=== PATIENT | female | born 1935 | race Caucasian/White ===

== ENCOUNTER → 2017-10-01 | Day surgery (SDC) | payer OTHER ==
[~2017-10-01] MED LIST: CEFAZOLIN 1 GM/50 ML (PMX) 50 ML IVPB; EPHEDrine SULFATE 50 MG/5 ML SYG; HEPARIN 1000 UNITS/ML 10 ML INJ; LIDOCAINE 1% (MDV) 20 ML INJ; hydrALAzine 20 MG INJ; hydrALAzine 20 MG INJ IV
== END | disposition home or self-care (01) ==
LOC: ZBAR 12:39 → SDS 12:39
DX: I12.0 Hypertensive chronic kidney disease with stage 5 chronic kidney disease or end stage renal disease (principal); N18.6 End stage renal disease
CPT/HCPCS: 36558; 76942

== ENCOUNTER 2017-10-26 15:18 | Inpatient (IN) | payer MEDICARE, BC, OTHER ==
[2017-10-26 16:32] LABS: ADD MAN DIFF? NO
[2017-10-26] MEDS: ACETAMINOPHEN 650 MG SUPP PR (16:35)
[2017-10-26] MEDS: SODIUM CHLORIDE 0.9% 1L BAG IV* (16:35)
[2017-10-26] MEDS: CEFEPIME 2GM/50 ML (PMX) 50 ML IVPB (16:35)
[2017-10-26 16:36] LABS: BASOPHIL # 0.1 10^3/ul (0.0-0.1); BASOPHILS % 0.3 % (0.0-2.0); EOSINOPHILS # 0.3 10^3/ul (0.0-0.5); EOSINOPHILS % 1.9 % (0.0-7.0); HEMATOCRIT 32.1 % (37.0-47.0); HEMOGLOBIN 10.1 g/dl (12.0-16.0); LYMPHOCYTES # 4.1 10^3/ul (0.8-2.9); LYMPHOCYTES % 25.4 % (15.0-51.0); MEAN CORPUSCULAR HEMOGLOBIN 30.8 pg (29.0-33.0); MEAN CORPUSCULAR HGB CONC 31.5 g/dl (32.0-37.0); MEAN CORPUSCULAR VOLUME 97.9 fl (82.0-101.0); MEAN PLATELET VOLUME 9.7 fl (7.4-10.4); MONOCYTE # 1.1 10^3/ul (0.3-0.9); MONOCYTES % 6.5 % (0.0-11.0); NEUTROPHIL # 10.1 10^3/ul (1.6-7.5); NEUTROPHILS % 62.6 % (39.0-77.0); NUCLEATED RED BLOOD CELLS% 0.2 /100WBC (0.0-0.0); PLATELET COUNT 323 10^3/UL (140-415); RED BLOOD COUNT 3.28 10^6/ul (4.20-5.40); RED CELL DISTRIBUTION WIDTH 17.6 % (11.5-14.5)
[2017-10-26 16:36] LABS: WHITE BLOOD COUNT 16.1 10^3/ul (4.8-10.8)
[2017-10-26 16:40] LABS: INR 0.99; PROTIME 13.2 Sec (11.9-14.9)
[2017-10-26 16:41] LABS: PARTIAL THROMBOPLASTIN TIME 30.1 Sec (25.0-35.0)
[2017-10-26 16:50] LABS: LACTIC ACID 1.7 mmol/L (0.5-2.0)
[2017-10-26 16:53] LABS: ALANINE AMINOTRANSFERASE 33 IU/L (13-69); ALBUMIN 3.7 g/dl (3.3-4.9); ALBUMIN/GLOBULIN RATIO 0.86; ALKALINE PHOSPHATASE 233 IU/L (42-121); ANION GAP 20 (8-16); ASPARTATE AMINO TRANSFERASE 51 IU/L (15-46); BLOOD UREA NITROGEN 112 mg/dl (7-20); CALCIUM 10.2 mg/dl (8.4-10.2); CARBON DIOXIDE 26 mmol/L (21-31); CHLORIDE 89 mmol/L (97-110); CREATININE 5.23 mg/dl (0.44-1.00); GLUCOSE 128 mg/dl (70-220); POTASSIUM 3.9 mmol/L (3.5-5.1); SODIUM 131 mmol/L (135-144)
[2017-10-26 17:03] LABS: TROPONIN-I 0.057 ng/ml (0.00-0.12)
[2017-10-26 17:33] LABS: ADD UMIC YES; UR ASCORBIC ACID NEGATIVE (NEGATIVE); UR BACTERIA MANY /HPF (NONE SEEN); UR BILIRUBIN (Dip) NEGATIVE (NEGATIVE); UR BLOOD (Dip) 2+ mg/dL (NEGATIVE); UR CLARITY TURBID (CLEAR); UR COLOR YELLOW (YELLOW); UR GLUCOSE (Dip) NEGATIVE (NEGATIVE); UR KETONES (Dip) NEGATIVE (NEGATIVE); UR LEUKOCYTE ESTERASE (Dip) 3+ Leu/ul (NEGATIVE); UR NITRITE (Dip) NEGATIVE (NEGATIVE); UR RBC 25 /HPF (0-5); UR SPECIFIC GRAVITY (Dip) 1.013 (1.003-1.030); UR TOTAL PROTEIN (Dip) 2+ mg/dl (NEGATIVE); UR UROBILINOGEN (Dip) NEGATIVE (NEGATIVE); UR WBC > 182 /HPF (0-5)
[2017-10-26] MEDS: VANCOMYCIN 1 GM (PMX) 250 ML IVPB (19:10)
[2017-10-26] MEDS ORDERED: ONDANSETRON 4 MG INJ IV (19:30)
[2017-10-26] MEDS ORDERED: ACETAMINOPHEN 325 MG TAB PO (19:30)
[2017-10-26 19:57] LABS: LACTIC ACID 0.9 mmol/L (0.5-2.0)
[2017-10-27 06:22] LABS: AADO2 Arterial 107.9 mmHg (7.0-24.0); Allen Test ACCEPTAB; Arterial Base Excess -4.1 mmol/L (-3.0-3); Arterial Blood Gas Oxygen Sat 95.3 mmHG (95.0-100.0); Arterial COHb 0 % (0.0-3.0); Arterial Fraction of Oxyhgb 94.9 % (93.0-99.0); Arterial HCO3 22.4 mmol/L (22.0-26.0); Arterial MetHb 0.4 % (0.0-1.5); Arterial Total Hemglobin 10.6 g/dl (12.0-18.0); Arterial pCO2 47.5 mmhg (35-45); MODE VENT - AC; Site Left Radial
[2017-10-27] MEDS ORDERED: HARD FAT/PHENYLEPHRINE SUPP PR (08:00)
[2017-10-27] MEDS ORDERED: ONDANSETRON 4 MG TAB GTB (08:00)
[2017-10-27] MEDS ORDERED: morphine LIQ (10 MG/5 ML) CUP GTB (08:00)
[2017-10-27] MEDS ORDERED: HYDROCODONE/APAP (5/325) TAB GTB (08:00)
[2017-10-27] MEDS ORDERED: VANCOMYCIN IV PER PHARMACY XX (08:00)
[2017-10-27 08:14] LABS: ADD MAN DIFF? NO
[2017-10-27 08:24] LABS: BASOPHILS % 0.2 % (0.0-2.0); EOSINOPHILS # 0.2 10^3/ul (0.0-0.5); EOSINOPHILS % 1.4 % (0.0-7.0); HEMATOCRIT 27.2 % (37.0-47.0); HEMOGLOBIN 8.6 g/dl (12.0-16.0); LYMPHOCYTES # 3.9 10^3/ul (0.8-2.9); LYMPHOCYTES % 22.7 % (15.0-51.0); MEAN CORPUSCULAR HEMOGLOBIN 30.7 pg (29.0-33.0); MEAN CORPUSCULAR HGB CONC 31.6 g/dl (32.0-37.0); MEAN CORPUSCULAR VOLUME 97.1 fl (82.0-101.0); MEAN PLATELET VOLUME 10.2 fl (7.4-10.4); MONOCYTE # 0.9 10^3/ul (0.3-0.9); MONOCYTES % 5.4 % (0.0-11.0); NEUTROPHIL # 11.8 10^3/ul (1.6-7.5); NEUTROPHILS % 68.1 % (39.0-77.0); PLATELET COUNT 294 10^3/UL (140-415)
[2017-10-27 08:24] LABS: WHITE BLOOD COUNT 17.4 10^3/ul (4.8-10.8)
[2017-10-27] MEDS ORDERED: GLUCAGON 1 MG INJ IM (08:30)
[2017-10-27] MEDS ORDERED: DEXTROSE 50% 50 ML SYRINGE IV ×2 (08:30)
[2017-10-27] MEDS: VANCOMYCIN 1 GM 250 ML IVPB (08:30)
[2017-10-27] MEDS ORDERED: GLUCOSE GEL 15 GRAM TUBE PO ×2 (08:30)
[2017-10-27] MEDS ORDERED: GLUCOSE GEL 15 GRAM TUBE BUCCAL (08:30)
[2017-10-27] MEDS: LEVOFLOXACIN 500MG/D5W (PMX) 100 ML IVPB (08:30)
[2017-10-27 08:32] LABS: POSITIVE DIFF @See below
[2017-10-27 08:39] LABS: ANION GAP 19 (8-16); BLOOD UREA NITROGEN 109 mg/dl (7-20); CALCIUM 9.2 mg/dl (8.4-10.2); CARBON DIOXIDE 23 mmol/L (21-31); CHLORIDE 96 mmol/L (97-110); CREATININE 4.96 mg/dl (0.44-1.00); GLUCOSE 103 mg/dl (70-220); POTASSIUM 3.6 mmol/L (3.5-5.1); SODIUM 134 mmol/L (135-144)
[2017-10-27] MEDS ORDERED: NON-FORMULARY/PATIENT OWN MED (Protein Supplement (Promod) 30 ML) GTB (09:00)
[2017-10-27] MEDS: POLYETHYLENE GLYCOL 17 GM PACKET GTB (09:17)
[2017-10-27] MEDS: METOCLOPRAMIDE (1 MG/ML) 10 ML CUP GTB ×3 (09:17→20:49)
[2017-10-27] MEDS: FERROUS SULFATE 60 MG/ML 5ML CUP GTB (09:17)
[2017-10-27] MEDS: VALSARTAN 160 MG TAB GTB ×2 (09:17→20:49)
[2017-10-27] MEDS: LANSOPRAZOLE 30 MG CAP GTB (09:18)
[2017-10-27] MEDS: BISACODYL 10 MG SUPP PR (09:18)
[2017-10-27] MEDS: AMIODARONE 200 MG TAB GTB (09:18)
[2017-10-27] MEDS: MULTIVIT/CA CARB/B CMPLX/FA TAB GTB (09:19)
[2017-10-27] MEDS: LACTOBACILLUS RHAMNOSUS CAP GTB (09:19)
[2017-10-27] MEDS: REPAGLINIDE 1 MG TAB GTB ×2 (11:00→17:05)
[2017-10-27] MEDS: SEVELAMER CARBONATE 0.8 GM PKT GTB ×2 (11:26→17:06)
[2017-10-27] MEDS: BALSAM PERU/CASTOR OIL 60 GM TUBE TOP (11:53)
[2017-10-27] MEDS: NYSTATIN 15 GM POWDER BTL TOP ×2 (11:53→20:49)
[2017-10-27] MEDS: INSULIN ASPART [NOVOLOG] 3 ML PEN SC ×3 (13:05→20:53)
[2017-10-27 15:35] LABS: HEPATITIS B SURFACE ANTIGEN NEGATIVE (NEGATIVE)
[2017-10-27 16:44] LABS: HEPATITIS B SURFACE ANTIBODY NEGATIVE (NEGATIVE)
[2017-10-27] MEDS: HEPARIN 1000 UNITS/ML 10 ML INJ CATHETER (17:35)
[2017-10-27] MEDS: BUDESONIDE (NEB) 0.5MG/2ML AMP INH (20:19)
[2017-10-27] MEDS: DOCUSATE SODIUM 10 MG/ML (10ML CUP) GTB (20:48)
[2017-10-28 06:32] LABS: PHOSPHORUS 2.9 mg/dl (2.5-4.9)
[2017-10-28 06:32] LABS: MAGNESIUM 2.3 mg/dl (1.7-2.5)
[2017-10-28] MEDS: REPAGLINIDE 1 MG TAB GTB ×3 (07:05→17:44)
[2017-10-28] MEDS: SEVELAMER CARBONATE 0.8 GM PKT GTB ×3 (07:35→17:44)
[2017-10-28] MEDS: INSULIN ASPART [NOVOLOG] 3 ML PEN SC ×3 (07:35→17:35)
[2017-10-28] MEDS: BISACODYL 10 MG SUPP PR (07:42)
[2017-10-28] MEDS: METOCLOPRAMIDE (1 MG/ML) 10 ML CUP GTB ×3 (07:42→21:22)
[2017-10-28] MEDS: LANSOPRAZOLE 30 MG CAP GTB (07:43)
[2017-10-28] MEDS: MULTIVIT/CA CARB/B CMPLX/FA TAB GTB (07:43)
[2017-10-28] MEDS: AMIODARONE 200 MG TAB GTB (07:43)
[2017-10-28] MEDS: VALSARTAN 160 MG TAB GTB ×2 (07:43→21:22)
[2017-10-28] MEDS: LACTOBACILLUS RHAMNOSUS CAP GTB (07:43)
[2017-10-28] MEDS: POLYETHYLENE GLYCOL 17 GM PACKET GTB (07:44)
[2017-10-28] MEDS: NYSTATIN 15 GM POWDER BTL TOP ×2 (07:44→21:22)
[2017-10-28] MEDS: FERROUS SULFATE 60 MG/ML 5ML CUP GTB (07:44)
[2017-10-28] MEDS: BALSAM PERU/CASTOR OIL 60 GM TUBE TOP (07:44)
[2017-10-28 08:01] LABS: ADD MAN DIFF? NO
[2017-10-28 08:07] LABS: WHITE BLOOD COUNT 14.5 10^3/ul (4.8-10.8)
[2017-10-28 08:07] LABS: BASOPHILS % 0.2 % (0.0-2.0); EOSINOPHILS # 0.3 10^3/ul (0.0-0.5); EOSINOPHILS % 2.1 % (0.0-7.0); HEMATOCRIT 26.7 % (37.0-47.0); HEMOGLOBIN 8.5 g/dl (12.0-16.0); LYMPHOCYTES # 3.9 10^3/ul (0.8-2.9); LYMPHOCYTES % 26.8 % (15.0-51.0); MEAN CORPUSCULAR HGB CONC 31.8 g/dl (32.0-37.0); MEAN CORPUSCULAR VOLUME 97.4 fl (82.0-101.0); MEAN PLATELET VOLUME 9.9 fl (7.4-10.4); MONOCYTE # 0.9 10^3/ul (0.3-0.9); MONOCYTES % 6.5 % (0.0-11.0); NEUTROPHILS % 62.3 % (39.0-77.0); PLATELET COUNT 230 10^3/UL (140-415); RED BLOOD COUNT 2.74 10^6/ul (4.20-5.40); RED CELL DISTRIBUTION WIDTH 18.4 % (11.5-14.5)
[2017-10-28 08:23] LABS: ANION GAP 15 (8-16); BLOOD UREA NITROGEN 63 mg/dl (7-20); CALCIUM 8.9 mg/dl (8.4-10.2); CARBON DIOXIDE 23 mmol/L (21-31); CHLORIDE 100 mmol/L (97-110); CREATININE 3.33 mg/dl (0.44-1.00); GLUCOSE 113 mg/dl (70-220); POTASSIUM 3.4 mmol/L (3.5-5.1); SODIUM 135 mmol/L (135-144)
[2017-10-28] MEDS: BUDESONIDE (NEB) 0.5MG/2ML AMP INH ×2 (12:59→20:12)
[2017-10-28] MEDS: Insulin NOVOLOG SS MODERATE Algorithm(NPO/TPN/ENTERAL FEEDS) SC (18:54)
[2017-10-28] MEDS: DOCUSATE SODIUM 10 MG/ML (10ML CUP) GTB (21:22)
[2017-10-29] MEDS ORDERED: INSULIN ASPART [NOVOLOG] 3 ML PEN SC
[2017-10-29 05:54] LABS: ADD MAN DIFF? NO
[2017-10-29] MEDS: Insulin NOVOLOG SS MODERATE Algorithm(NPO/TPN/ENTERAL FEEDS) SC ×4 (06:08→18:29)
[2017-10-29 06:10] LABS: WHITE BLOOD COUNT 16.1 10^3/ul (4.8-10.8)
[2017-10-29 06:10] LABS: BASOPHILS % 0.1 % (0.0-2.0); EOSINOPHILS # 0.8 10^3/ul (0.0-0.5); HEMATOCRIT 27.9 % (37.0-47.0); HEMOGLOBIN 8.9 g/dl (12.0-16.0); LYMPHOCYTES # 4.7 10^3/ul (0.8-2.9); MEAN CORPUSCULAR HEMOGLOBIN 30.8 pg (29.0-33.0); MEAN CORPUSCULAR HGB CONC 31.9 g/dl (32.0-37.0); MEAN CORPUSCULAR VOLUME 96.5 fl (82.0-101.0); MEAN PLATELET VOLUME 9.5 fl (7.4-10.4); MONOCYTE # 0.9 10^3/ul (0.3-0.9); MONOCYTES % 5.5 % (0.0-11.0); NEUTROPHIL # 9.2 10^3/ul (1.6-7.5); NEUTROPHILS % 57.3 % (39.0-77.0); NUCLEATED RED BLOOD CELLS% 0.1 /100WBC (0.0-0.0); PLATELET COUNT 248 10^3/UL (140-415); RED BLOOD COUNT 2.89 10^6/ul (4.20-5.40); RED CELL DISTRIBUTION WIDTH 17.9 % (11.5-14.5)
[2017-10-29 06:29] LABS: VANCOMYCIN,RANDOM 12.7 ug/ml
[2017-10-29 06:34] LABS: ANION GAP 17 (8-16); BLOOD UREA NITROGEN 75 mg/dl (7-20); CALCIUM 9.2 mg/dl (8.4-10.2); CARBON DIOXIDE 25 mmol/L (21-31); CHLORIDE 98 mmol/L (97-110); CREATININE 4.37 mg/dl (0.44-1.00); GLUCOSE 138 mg/dl (70-220); MAGNESIUM 2.4 mg/dl (1.7-2.5); PHOSPHORUS 3.3 mg/dl (2.5-4.9); POTASSIUM 3.2 mmol/L (3.5-5.1); SODIUM 137 mmol/L (135-144)
[2017-10-29] MEDS: REPAGLINIDE 1 MG TAB GTB ×3 (06:43→18:13)
[2017-10-29] MEDS: BISACODYL 10 MG SUPP PR (08:00)
[2017-10-29] MEDS: ACETAMINOPHEN 650MG/20.3ML CUP GTB ×2 (08:38→15:06)
[2017-10-29] MEDS: LACTOBACILLUS RHAMNOSUS CAP GTB (08:38)
[2017-10-29] MEDS: FERROUS SULFATE 60 MG/ML 5ML CUP GTB (08:38)
[2017-10-29] MEDS: METOCLOPRAMIDE (1 MG/ML) 10 ML CUP GTB ×3 (08:38→20:38)
[2017-10-29] MEDS: POTASSIUM CHLORIDE 20 MEQ POWDER FOR ORAL SOLN GTB (08:38)
[2017-10-29] MEDS: MULTIVIT/CA CARB/B CMPLX/FA TAB GTB (08:38)
[2017-10-29] MEDS: AMIODARONE 200 MG TAB GTB (08:39)
[2017-10-29] MEDS: SEVELAMER CARBONATE 0.8 GM PKT GTB ×3 (08:39→18:13)
[2017-10-29] MEDS: LANSOPRAZOLE 30 MG CAP GTB (08:39)
[2017-10-29] MEDS: BALSAM PERU/CASTOR OIL 60 GM TUBE TOP (08:39)
[2017-10-29] MEDS: NYSTATIN 15 GM POWDER BTL TOP ×2 (08:39→20:45)
[2017-10-29] MEDS: BUDESONIDE (NEB) 0.5MG/2ML AMP INH ×2 (09:59→19:29)
[2017-10-29] MEDS: HEPARIN 1000 UNITS/ML 10 ML INJ CATHETER (12:35)
[2017-10-29] MEDS: VANCOMYCIN 1 GM 250 ML IVPB (14:52)
[2017-10-29] MEDS: LEVOFLOXACIN 250MG/D5W (PMX) 50 ML IVPB (14:53)
[2017-10-29] MEDS: VALSARTAN 160 MG TAB GTB ×2 (14:54→20:39)
[2017-10-29] MEDS: DOCUSATE SODIUM 10 MG/ML (10ML CUP) GTB (20:39)
[2017-10-30] MEDS: Insulin NOVOLOG SS MODERATE Algorithm(NPO/TPN/ENTERAL FEEDS) SC ×4 (00:04→17:27)
[2017-10-30 06:04] LABS: ADD MAN DIFF? NO
[2017-10-30 06:20] LABS: WHITE BLOOD COUNT 15.6 10^3/ul (4.8-10.8)
[2017-10-30 06:20] LABS: BASOPHIL # 0.1 10^3/ul (0.0-0.1); BASOPHILS % 0.4 % (0.0-2.0); EOSINOPHILS # 0.8 10^3/ul (0.0-0.5); EOSINOPHILS % 5.3 % (0.0-7.0); HEMATOCRIT 28.4 % (37.0-47.0); HEMOGLOBIN 8.7 g/dl (12.0-16.0); LYMPHOCYTES # 4.1 10^3/ul (0.8-2.9); LYMPHOCYTES % 26.6 % (15.0-51.0); MEAN CORPUSCULAR HEMOGLOBIN 30.2 pg (29.0-33.0); MEAN CORPUSCULAR HGB CONC 30.6 g/dl (32.0-37.0); MEAN CORPUSCULAR VOLUME 98.6 fl (82.0-101.0); MEAN PLATELET VOLUME 10.1 fl (7.4-10.4); MONOCYTE # 0.9 10^3/ul (0.3-0.9); MONOCYTES % 5.6 % (0.0-11.0); NEUTROPHILS % 57.8 % (39.0-77.0); PLATELET COUNT 262 10^3/UL (140-415); RED BLOOD COUNT 2.88 10^6/ul (4.20-5.40); RED CELL DISTRIBUTION WIDTH 18.3 % (11.5-14.5)
[2017-10-30] MEDS: REPAGLINIDE 1 MG TAB GTB ×3 (06:36→17:18)
[2017-10-30 06:44] LABS: ANION GAP 15 (8-16); BLOOD UREA NITROGEN 43 mg/dl (7-20); CALCIUM 8.7 mg/dl (8.4-10.2); CARBON DIOXIDE 27 mmol/L (21-31); CHLORIDE 100 mmol/L (97-110); CREATININE 2.88 mg/dl (0.44-1.00); GLUCOSE 211 mg/dl (70-220); MAGNESIUM 2.2 mg/dl (1.7-2.5); PHOSPHORUS 2.9 mg/dl (2.5-4.9); POTASSIUM 3.6 mmol/L (3.5-5.1); SODIUM 138 mmol/L (135-144)
[2017-10-30] MEDS: LANSOPRAZOLE 30 MG CAP GTB (08:03)
[2017-10-30] MEDS: FERROUS SULFATE 60 MG/ML 5ML CUP GTB (08:03)
[2017-10-30] MEDS: MULTIVIT/CA CARB/B CMPLX/FA TAB GTB (08:04)
[2017-10-30] MEDS: VALSARTAN 160 MG TAB GTB (08:04)
[2017-10-30] MEDS: LACTOBACILLUS RHAMNOSUS CAP GTB (08:04)
[2017-10-30] MEDS: AMIODARONE 200 MG TAB GTB (08:04)
[2017-10-30] MEDS: NYSTATIN 15 GM POWDER BTL TOP (08:05)
[2017-10-30] MEDS: BALSAM PERU/CASTOR OIL 60 GM TUBE TOP (08:05)
[2017-10-30] MEDS: BISACODYL 10 MG SUPP PR (08:05)
[2017-10-30] MEDS: SEVELAMER CARBONATE 0.8 GM PKT GTB ×3 (08:14→17:18)
[2017-10-30] MEDS: METOCLOPRAMIDE (1 MG/ML) 10 ML CUP GTB ×2 (08:14→12:44)
[2017-10-30] MEDS: BUDESONIDE (NEB) 0.5MG/2ML AMP INH (09:56)
[2017-10-30] MEDS: ALBUTEROL/IPRATROPIUM (NEB) 3 ML AMP NEB (11:32)
== END 2017-10-30 20:15 | DRG 870 ==
LOC: ICU 19:12 → E/R 15:18
PROC: 5A1955Z Respiratory Ventilation, Greater than 96 Consecutive Hours (ICD-10-PCS; principal; 2017-10-26)
PROC: 4A033R1 Measurement of Arterial Saturation, Peripheral, Percutaneous Approach (ICD-10-PCS; 2017-10-27)
PROC: 5A1D70Z Performance of Urinary Filtration, Intermittent, Less than 6 Hours Per Day (ICD-10-PCS; 2017-10-29)
DX: A41.1 Sepsis due to other specified staphylococcus (principal); L89.153 Pressure ulcer of sacral region, stage 3; N18.6 End stage renal disease; G92 Toxic encephalopathy; R65.21 Severe sepsis with septic shock; I50.23 Acute on chronic systolic (congestive) heart failure; N39.0 Urinary tract infection, site not specified; I13.2 Hypertensive heart and chronic kidney disease with heart failure and with stage 5 chronic kidney disease, or end stage renal disease; Z99.11 Dependence on respirator [ventilator] status; E87.1 Hypo-osmolality and hyponatremia; J96.11 Chronic respiratory failure with hypoxia; J84.9 Interstitial pulmonary disease, unspecified; I48.0 Paroxysmal atrial fibrillation; E11.22 Type 2 diabetes mellitus with diabetic chronic kidney disease; Z93.0 Tracheostomy status; Z93.1 Gastrostomy status; R13.10 Dysphagia, unspecified; D64.9 Anemia, unspecified; E87.6 Hypokalemia; Z79.4 Long term (current) use of insulin; Z99.2 Dependence on renal dialysis
CPT/HCPCS: 36415; 36600; 71045; 74176; 80048; 80053; 80202; 81001; 82803; 82962; 83605; 83735; 84100; 84484; 85025; 85610; 85730; 86706; 87040; 87045; 87081; 87086; 87340; 90935; 93005; 94002; 94003; 94640; 94664; 96374; 96375; 99291-25

== ENCOUNTER 2017-11-08 05:20 | Inpatient (IN) | payer MEDICARE, BC ==
[2017-11-08] MEDS: NORepinephrine 8MG/250 ML (PMX 250 ML IV (07:00)
[2017-11-08] MEDS: SOD CHLORIDE 0.9% 1,000 ML IV (07:59)
[2017-11-08] MEDS ORDERED: VANCOMYCIN 750 MG in DEXTROSE 5% 150 ML IVPB (08:00)
[2017-11-08] MEDS: PIPER-TAZO 3.375 GM IV (PMX) 100 ML IVPB (08:00)
[2017-11-08] MEDS ORDERED: BISACODYL 10 MG SUPP PR (08:30)
[2017-11-08] MEDS ORDERED: HYDROCODONE/APAP (5/325) TAB GTB (08:30)
[2017-11-08] MEDS ORDERED: HARD FAT/PHENYLEPHRINE SUPP PR (08:30)
[2017-11-08] MEDS ORDERED: VANCOMYCIN IV PER PHARMACY XX (08:30)
[2017-11-08] MEDS: ACETAMINOPHEN 650 MG SUPP PR (08:59)
[2017-11-08] MEDS: AMLODIPINE 10 MG TAB GTB (09:00)
[2017-11-08] MEDS: BUDESONIDE (NEB) 0.5MG/2ML AMP HHN ×2 (09:00→19:27)
[2017-11-08] MEDS: AMIODARONE 200 MG TAB GTB (09:00)
[2017-11-08] MEDS ORDERED: FLUCONAZOLE 100 MG TAB GTB (09:30)
[2017-11-08] MEDS ORDERED: morphine LIQ (10 MG/5 ML) CUP PO (09:30)
[2017-11-08] MEDS ORDERED: POLYETHYLENE GLYCOL 17 GM PACKET GTB (09:30)
[2017-11-08] MEDS ORDERED: ONDANSETRON 4 MG TAB PO (09:30)
[2017-11-08] MEDS: LACTOBACILLUS RHAMNOSUS CAP GTB (09:40)
[2017-11-08] MEDS: DEXTROSE 5%-0.9% NACL 1,000 ML IV ×2 (10:08→23:24)
[2017-11-08 10:10] LABS: ADD MAN DIFF? NO
[2017-11-08] MEDS: HEPARIN 5,000 UNIT/0.5 ML VIAL SC ×2 (10:12→21:02)
[2017-11-08 10:21] LABS: ABNORMAL IP MESSAGE 1; BASOPHIL # 0.1 10^3/ul (0.0-0.1); BASOPHILS % 0.3 % (0.0-2.0); EOSINOPHILS # 0.3 10^3/ul (0.0-0.5); HEMATOCRIT 31.8 % (37.0-47.0); HEMOGLOBIN 9.8 g/dl (12.0-16.0); LYMPHOCYTES # 4.1 10^3/ul (0.8-2.9); LYMPHOCYTES % 13.5 % (15.0-51.0); MEAN CORPUSCULAR HEMOGLOBIN 31.5 pg (29.0-33.0); MEAN CORPUSCULAR HGB CONC 30.8 g/dl (32.0-37.0); MEAN CORPUSCULAR VOLUME 102.3 fl (82.0-101.0); MEAN PLATELET VOLUME 10.4 fl (7.4-10.4); MONOCYTE # 1.5 10^3/ul (0.3-0.9); MONOCYTES % 4.7 % (0.0-11.0); NEUTROPHIL # 23.7 10^3/ul (1.6-7.5); NEUTROPHILS % 77.5 % (39.0-77.0); NUCLEATED RED BLOOD CELLS # 0.9 10^3/ul (0.0-0.0); NUCLEATED RED BLOOD CELLS% 2.8 /100WBC (0.0-0.0); PLATELET COUNT 324 10^3/UL (140-415); RED BLOOD COUNT 3.11 10^6/ul (4.20-5.40); RED CELL DISTRIBUTION WIDTH 19.1 % (11.5-14.5)
[2017-11-08 10:21] LABS: WHITE BLOOD COUNT 30.6 10^3/ul (4.8-10.8)
[2017-11-08 10:26] LABS: POSITIVE DIFF @See below
[2017-11-08 10:41] LABS: LACTIC ACID 3.5 mmol/L (0.5-2.0)
[2017-11-08 10:43] LABS: INR 1.23; PROTIME 15.7 Sec (11.9-14.9); PT RATIO 1.2
[2017-11-08 10:46] LABS: ALANINE AMINOTRANSFERASE 49 IU/L (13-69); ALBUMIN/GLOBULIN RATIO 1.02; ALKALINE PHOSPHATASE 143 IU/L (42-121); ANION GAP 21 (8-16); ASPARTATE AMINO TRANSFERASE 156 IU/L (15-46); BILIRUBIN,INDIRECT 0.1 mg/dl (0-1.1); BILIRUBIN,TOTAL 0.1 mg/dl (0.2-1.3); BLOOD UREA NITROGEN 64 mg/dl (7-20); CALCIUM 11.8 mg/dl (8.4-10.2); CARBON DIOXIDE 24 mmol/L (21-31); CHLORIDE 103 mmol/L (97-110); CREATININE 5.44 mg/dl (0.44-1.00); GLUCOSE 95 mg/dl (70-220); POTASSIUM 3.5 mmol/L (3.5-5.1); SODIUM 144 mmol/L (135-144); TOTAL PROTEIN 7.9 g/dl (6.1-8.1)
[2017-11-08] MEDS: REPAGLINIDE 1 MG TAB PO (11:00)
[2017-11-08] MEDS ORDERED: PENDING SANTYL ORDER FOR WOUND CARE XX (12:00)
[2017-11-08] MEDS: CASPOFUNGIN 70 MG in SOD CHLORIDE 0.9% 250 ML IVPB (12:08)
[2017-11-08] MEDS: NYSTATIN SUSP 5 ML CUP GTB ×2 (12:09→18:18)
[2017-11-08] MEDS: BALSAM PERU/CASTOR OIL 60 GM TUBE TOP ×2 (12:09→21:07)
[2017-11-08] MEDS: METOCLOPRAMIDE 5 MG TAB GTB (12:10)
[2017-11-08 12:33] LABS: HEPATITIS B SURFACE ANTIGEN NEGATIVE (NEGATIVE)
[2017-11-08] MEDS: INSULIN ASPART [NOVOLOG] 3 ML PEN SC ×3 (13:00→21:05)
[2017-11-08] MEDS: MICONAZOLE 2% 30 GM CR TOP ×2 (13:43→21:07)
[2017-11-08] MEDS ORDERED: ALBUTEROL/IPRATROPIUM (NEB) 3 ML AMP HHN (14:00)
[2017-11-08] MEDS ORDERED: metroNIDAZOLE 500 MG TAB GTB (14:00)
[2017-11-08] MEDS: METOCLOPRAMIDE 10 MG INJ IV ×2 (14:56→23:23)
[2017-11-08] MEDS: ALBUTEROL HFA 8 GM INHALER INH ×2 (17:35→19:27)
[2017-11-08] MEDS: IPRATROPIUM (HFA) 12.9 GM INHALER INH ×2 (17:36→19:27)
[2017-11-08] MEDS: HEPARIN 1000 UNITS/ML 10 ML INJ CATHETER (18:15)
[2017-11-08] MEDS: MEROPENEM 500MG/50 ML (PMX) 50 ML IVPB (18:17)
[2017-11-08] MEDS: PANTOPRAZOLE 40 MG INJ IV (18:19)
[2017-11-08] MEDS: VANCOMYCIN 1 GM 250 ML IVPB (18:58)
[2017-11-08] MEDS ORDERED: AMIODARONE 150MG/D5W BOLUS 100 ML (20:41)
[2017-11-08] MEDS: AMIODARONE 150MG/D5W BOLUS 100 ML IV (20:47)
[2017-11-08] MEDS ORDERED: VALSARTAN 160 MG TAB GTB (21:00)
[2017-11-08] MEDS: DOCUSATE SODIUM 10 MG/ML (10ML CUP) GTB (21:00)
[2017-11-08] MEDS: INSULIN GLARGINE [LANtus] 3 ML PEN SC (21:03)
[2017-11-08] MEDS: NYSTATIN 30 GM POWDER BTL TOP (21:07)
[2017-11-08] MEDS: AMIODARONE 900 MG in DEXTROSE 5% 482 ML IV (21:19)
[2017-11-09] MEDS: IPRATROPIUM (HFA) 12.9 GM INHALER INH ×4 (01:22→19:19)
[2017-11-09] MEDS: ALBUTEROL HFA 8 GM INHALER INH ×4 (01:22→19:19)
[2017-11-09] MEDS: INSULIN ASPART [NOVOLOG] 3 ML PEN SC ×6 (01:38→21:00)
[2017-11-09] MEDS: NYSTATIN SUSP 5 ML CUP GTB ×4 (01:39→17:07)
[2017-11-09] MEDS: ACCU-CHEK XX (01:40)
[2017-11-09 04:34] LABS: ADD MAN DIFF? NO
[2017-11-09 04:39] LABS: WHITE BLOOD COUNT 23.9 10^3/ul (4.8-10.8)
[2017-11-09 04:39] LABS: BASOPHIL # 0.1 10^3/ul (0.0-0.1); BASOPHILS % 0.3 % (0.0-2.0); EOSINOPHILS # 0.2 10^3/ul (0.0-0.5); EOSINOPHILS % 0.7 % (0.0-7.0); HEMOGLOBIN 8.5 g/dl (12.0-16.0); LYMPHOCYTES # 3.9 10^3/ul (0.8-2.9); LYMPHOCYTES % 16.3 % (15.0-51.0); MEAN CORPUSCULAR HEMOGLOBIN 30.7 pg (29.0-33.0); MEAN CORPUSCULAR HGB CONC 30.4 g/dl (32.0-37.0); MEAN CORPUSCULAR VOLUME 101.1 fl (82.0-101.0); MEAN PLATELET VOLUME 10.4 fl (7.4-10.4); MONOCYTE # 1.1 10^3/ul (0.3-0.9); MONOCYTES % 4.6 % (0.0-11.0); NEUTROPHIL # 18.2 10^3/ul (1.6-7.5); NEUTROPHILS % 76.2 % (39.0-77.0); NUCLEATED RED BLOOD CELLS # 0.3 10^3/ul (0.0-0.0); NUCLEATED RED BLOOD CELLS% 1.1 /100WBC (0.0-0.0); PLATELET COUNT 227 10^3/UL (140-415); RED BLOOD COUNT 2.77 10^6/ul (4.20-5.40); RED CELL DISTRIBUTION WIDTH 19.6 % (11.5-14.5)
[2017-11-09 04:53] LABS: IRON 32 ug/dl (35-150)
[2017-11-09 04:55] LABS: ANION GAP 19 (8-16); BLOOD UREA NITROGEN 39 mg/dl (7-20); CALCIUM 9.7 mg/dl (8.4-10.2); CARBON DIOXIDE 24 mmol/L (21-31); CHLORIDE 101 mmol/L (97-110); CREATININE 3.24 mg/dl (0.44-1.00); GLUCOSE 253 mg/dl (70-220); MAGNESIUM 2.2 mg/dl (1.7-2.5); PHOSPHORUS 1.9 mg/dl (2.5-4.9); POTASSIUM 4.5 mmol/L (3.5-5.1); SODIUM 139 mmol/L (135-144)
[2017-11-09 05:01] LABS: LACTIC ACID 2.2 mmol/L (0.5-2.0)
[2017-11-09 05:02] LABS: % IRON SATURATION 15 % SAT (22-52); TOTAL IRON BINDING CAPACITY 218 ug/dl (241-421)
[2017-11-09 05:25] LABS: AADO2 Arterial 198.7 mmHg (7.0-24.0); Allen Test ACCEPTAB; Arterial Base Excess 1.3 mmol/L (-3.0-3); Arterial Blood Gas Oxygen Sat 95.1 mmHG (95.0-100.0); Arterial COHb 0.9 % (0.0-3.0); Arterial Fraction of Oxyhgb 94.1 % (93.0-99.0); Arterial HCO3 26.5 mmol/L (22.0-26.0); Arterial MetHb 0.2 % (0.0-1.5); Arterial Total Hemglobin 10.3 g/dl (12.0-18.0); Arterial pCO2 44.1 mmhg (35-45); MODE VENT - AC; Site Right Radial
[2017-11-09] MEDS: METOCLOPRAMIDE 10 MG INJ IV ×3 (05:30→21:07)
[2017-11-09] MEDS: PANTOPRAZOLE 40 MG INJ IV ×2 (05:30→17:10)
[2017-11-09] MEDS ORDERED: LANSOPRAZOLE 30 MG CAP GTB (06:00)
[2017-11-09] MEDS: MULTIVIT/CA CARB/B CMPLX/FA TAB GTB (08:55)
[2017-11-09] MEDS: NYSTATIN 30 GM POWDER BTL TOP ×2 (08:56→21:01)
[2017-11-09] MEDS: MICONAZOLE 2% 30 GM CR TOP ×2 (08:56→21:02)
[2017-11-09] MEDS: BALSAM PERU/CASTOR OIL 60 GM TUBE TOP ×2 (08:56→21:02)
[2017-11-09] MEDS: HEPARIN 5,000 UNIT/0.5 ML VIAL SC ×2 (08:57→21:01)
[2017-11-09] MEDS ORDERED: FERROUS SULFATE 60 MG/ML 5ML CUP GTB (09:00)
[2017-11-09] MEDS: BUDESONIDE (NEB) 0.5MG/2ML AMP HHN ×2 (09:07→19:18)
[2017-11-09 09:14] LABS: LACTIC ACID 2.2 mmol/L (0.5-2.0)
[2017-11-09] MEDS: POTASSIUM PHOSPHATE 20 MEQ in SOD CHLORIDE 0.9% 250 ML IVPB (10:38)
[2017-11-09] MEDS: CASPOFUNGIN 50 MG in SOD CHLORIDE 0.9% 250 ML IVPB (10:39)
[2017-11-09] MEDS: MEROPENEM 500MG/50 ML (PMX) 50 ML IVPB (12:55)
[2017-11-09] MEDS: SOD FERRIC GLUC COMPLX 125 MG in SOD CHLORIDE 0.9% 100 ML IVPB (16:27)
[2017-11-09] MEDS: AMPICILLIN/SULB 3 GM/NS (PMX) 100 ML IVPB (16:45)
[2017-11-09] MEDS: AMIODARONE 900 MG in DEXTROSE 5% 482 ML IV (18:35)
[2017-11-09] MEDS: INSULIN GLARGINE [LANtus] 3 ML PEN SC (20:59)
[2017-11-09] MEDS ORDERED: LINEZOLID 600 MG/D5W (PMX) 300 ML IVPB (21:00)
[2017-11-10] MEDS: NYSTATIN SUSP 5 ML CUP GTB ×5 (00:42→23:32)
[2017-11-10] MEDS: INSULIN ASPART [NOVOLOG] 3 ML PEN SC ×6 (00:44→21:00)
[2017-11-10] MEDS: ACCU-CHEK XX (01:13)
[2017-11-10] MEDS: ALBUTEROL HFA 8 GM INHALER INH ×4 (01:29→20:03)
[2017-11-10] MEDS: IPRATROPIUM (HFA) 12.9 GM INHALER INH ×4 (01:29→20:03)
[2017-11-10] MEDS: METOCLOPRAMIDE 10 MG INJ IV ×3 (06:15→21:05)
[2017-11-10] MEDS: PANTOPRAZOLE 40 MG INJ IV ×2 (06:15→17:17)
[2017-11-10 06:22] LABS: ADD MAN DIFF? NO
[2017-11-10 06:33] LABS: WHITE BLOOD COUNT 16.2 10^3/ul (4.8-10.8)
[2017-11-10 06:33] LABS: BASOPHILS % 0.2 % (0.0-2.0); EOSINOPHILS # 0.5 10^3/ul (0.0-0.5); EOSINOPHILS % 3.2 % (0.0-7.0); HEMOGLOBIN 8.4 g/dl (12.0-16.0); LYMPHOCYTES # 3.2 10^3/ul (0.8-2.9); LYMPHOCYTES % 19.8 % (15.0-51.0); MEAN CORPUSCULAR HEMOGLOBIN 30.3 pg (29.0-33.0); MEAN CORPUSCULAR VOLUME 101.1 fl (82.0-101.0); MEAN PLATELET VOLUME 10.8 fl (7.4-10.4); MONOCYTE # 0.9 10^3/ul (0.3-0.9); MONOCYTES % 5.5 % (0.0-11.0); NEUTROPHIL # 11.2 10^3/ul (1.6-7.5); NEUTROPHILS % 69.3 % (39.0-77.0); NUCLEATED RED BLOOD CELLS # 0.2 10^3/ul (0.0-0.0); NUCLEATED RED BLOOD CELLS% 1.2 /100WBC (0.0-0.0); PLATELET COUNT 214 10^3/UL (140-415); RED BLOOD COUNT 2.77 10^6/ul (4.20-5.40); RED CELL DISTRIBUTION WIDTH 19.6 % (11.5-14.5)
[2017-11-10 07:23] LABS: ANION GAP 19 (8-16); BLOOD UREA NITROGEN 59 mg/dl (7-20); CALCIUM 10.2 mg/dl (8.4-10.2); CARBON DIOXIDE 24 mmol/L (21-31); CHLORIDE 102 mmol/L (97-110); CREATININE 4.56 mg/dl (0.44-1.00); GLUCOSE 155 mg/dl (70-220); MAGNESIUM 2.3 mg/dl (1.7-2.5); PHOSPHORUS 3.7 mg/dl (2.5-4.9); POTASSIUM 4.5 mmol/L (3.5-5.1); SODIUM 140 mmol/L (135-144)
[2017-11-10] MEDS: HEPARIN 5,000 UNIT/0.5 ML VIAL SC ×2 (08:38→21:00)
[2017-11-10] MEDS: BALSAM PERU/CASTOR OIL 60 GM TUBE TOP (08:39)
[2017-11-10] MEDS: NYSTATIN 30 GM POWDER BTL TOP ×2 (08:39→20:48)
[2017-11-10] MEDS: DEXTROSE 5%-0.45% NACL 1,000 ML IV (08:39)
[2017-11-10] MEDS: MICONAZOLE 2% 30 GM CR TOP ×2 (08:40→20:49)
[2017-11-10] MEDS: MULTIVIT/CA CARB/B CMPLX/FA TAB GTB (09:00)
[2017-11-10] MEDS: BUDESONIDE (NEB) 0.5MG/2ML AMP HHN ×2 (09:39→20:03)
[2017-11-10] MEDS: CASPOFUNGIN 50 MG in SOD CHLORIDE 0.9% 250 ML IVPB (10:37)
[2017-11-10] MEDS: AMPICILLIN/SULB 3 GM/NS (PMX) 100 ML IVPB ×2 (11:29→20:50)
[2017-11-10] MEDS ORDERED: DILTIAZEM 25 MG INJ IV (15:30)
[2017-11-10] MEDS: SOD FERRIC GLUC COMPLX 125 MG in SOD CHLORIDE 0.9% 100 ML IVPB (17:23)
[2017-11-10] MEDS: COLLAGENASE 30 GM TUBE TOP (20:48)
[2017-11-10] MEDS: INSULIN GLARGINE [LANtus] 3 ML PEN SC (20:59)
[2017-11-10] MEDS: ALTEPLASE (CATHFLO) 2 MG INJ CATHETER (22:41)
[2017-11-11] MEDS: INSULIN ASPART [NOVOLOG] 3 ML PEN SC ×6 (01:00→20:31)
[2017-11-11] MEDS: ALBUTEROL HFA 8 GM INHALER INH ×4 (01:07→19:35)
[2017-11-11] MEDS: IPRATROPIUM (HFA) 12.9 GM INHALER INH ×4 (01:07→19:34)
[2017-11-11] MEDS: ACCU-CHEK XX (01:20)
[2017-11-11 05:14] LABS: ADD MAN DIFF? NO
[2017-11-11 05:24] LABS: WHITE BLOOD COUNT 15.8 10^3/ul (4.8-10.8)
[2017-11-11 05:24] LABS: BASOPHIL # 0.1 10^3/ul (0.0-0.1); BASOPHILS % 0.4 % (0.0-2.0); EOSINOPHILS # 0.7 10^3/ul (0.0-0.5); EOSINOPHILS % 4.5 % (0.0-7.0); HEMATOCRIT 25.5 % (37.0-47.0); HEMOGLOBIN 7.7 g/dl (12.0-16.0); LYMPHOCYTES # 3.6 10^3/ul (0.8-2.9); LYMPHOCYTES % 22.9 % (15.0-51.0); MEAN CORPUSCULAR HEMOGLOBIN 30.4 pg (29.0-33.0); MEAN CORPUSCULAR HGB CONC 30.2 g/dl (32.0-37.0); MEAN CORPUSCULAR VOLUME 100.8 fl (82.0-101.0); MEAN PLATELET VOLUME 11.1 fl (7.4-10.4); MONOCYTE # 1.1 10^3/ul (0.3-0.9); MONOCYTES % 7.1 % (0.0-11.0); NEUTROPHIL # 9.6 10^3/ul (1.6-7.5); NUCLEATED RED BLOOD CELLS # 0.1 10^3/ul (0.0-0.0); NUCLEATED RED BLOOD CELLS% 0.7 /100WBC (0.0-0.0); PLATELET COUNT 203 10^3/UL (140-415); RED BLOOD COUNT 2.53 10^6/ul (4.20-5.40); RED CELL DISTRIBUTION WIDTH 19.3 % (11.5-14.5)
[2017-11-11] MEDS: HEPARIN 1000 UNITS/ML 10 ML INJ CATHETER (05:30)
[2017-11-11 05:42] LABS: ANION GAP 15 (8-16); BLOOD UREA NITROGEN 66 mg/dl (7-20); CALCIUM 9.8 mg/dl (8.4-10.2); CARBON DIOXIDE 27 mmol/L (21-31); CHLORIDE 103 mmol/L (97-110); CREATININE 5.34 mg/dl (0.44-1.00); GLUCOSE 139 mg/dl (70-220); MAGNESIUM 2.3 mg/dl (1.7-2.5); PHOSPHORUS 4.1 mg/dl (2.5-4.9); POTASSIUM 4.2 mmol/L (3.5-5.1); SODIUM 141 mmol/L (135-144)
[2017-11-11] MEDS: METOCLOPRAMIDE 10 MG INJ IV ×3 (05:50→20:32)
[2017-11-11] MEDS: NYSTATIN SUSP 5 ML CUP GTB ×3 (05:50→17:29)
[2017-11-11] MEDS: PANTOPRAZOLE 40 MG INJ IV ×2 (05:50→18:18)
[2017-11-11] MEDS: BUDESONIDE (NEB) 0.5MG/2ML AMP HHN ×2 (08:36→19:35)
[2017-11-11] MEDS: HEPARIN 5,000 UNIT/0.5 ML VIAL SC ×2 (09:00→20:30)
[2017-11-11] MEDS: MULTIVIT/CA CARB/B CMPLX/FA TAB GTB (09:00)
[2017-11-11] MEDS: MICONAZOLE 2% 30 GM CR TOP ×2 (09:14→20:27)
[2017-11-11] MEDS: DEXTROSE 5%-0.45% NACL 1,000 ML IV (09:21)
[2017-11-11] MEDS: AMPICILLIN/SULB 3 GM/NS (PMX) 100 ML IVPB ×2 (09:22→20:27)
[2017-11-11] MEDS: NYSTATIN 30 GM POWDER BTL TOP ×2 (09:24→20:31)
[2017-11-11] MEDS: CASPOFUNGIN 50 MG in SOD CHLORIDE 0.9% 250 ML IVPB (12:16)
[2017-11-11 14:18] LABS: HEMATOCRIT 29.4 % (37.0-47.0); HEMOGLOBIN 8.8 g/dl (12.0-16.0)
[2017-11-11] MEDS: SOD FERRIC GLUC COMPLX 125 MG in SOD CHLORIDE 0.9% 100 ML IVPB (16:10)
[2017-11-11] MEDS: COLLAGENASE 30 GM TUBE TOP (20:27)
[2017-11-11] MEDS: INSULIN GLARGINE [LANtus] 3 ML PEN SC (20:30)
[2017-11-12] MEDS: ACCU-CHEK XX (00:46)
[2017-11-12] MEDS: INSULIN ASPART [NOVOLOG] 3 ML PEN SC ×6 (00:46→22:43)
[2017-11-12] MEDS: NYSTATIN SUSP 5 ML CUP GTB ×4 (00:47→18:00)
[2017-11-12] MEDS: IPRATROPIUM (HFA) 12.9 GM INHALER INH ×4 (01:28→21:21)
[2017-11-12] MEDS: ALBUTEROL HFA 8 GM INHALER INH ×4 (01:28→21:22)
[2017-11-12 05:21] LABS: ADD MAN DIFF? NO
[2017-11-12 05:23] LABS: WHITE BLOOD COUNT 12.4 10^3/ul (4.8-10.8)
[2017-11-12 05:23] LABS: ABNORMAL IP MESSAGE 1; BASOPHIL # 0.1 10^3/ul (0.0-0.1); BASOPHILS % 0.9 % (0.0-2.0); EOSINOPHILS # 0.6 10^3/ul (0.0-0.5); EOSINOPHILS % 4.6 % (0.0-7.0); HEMATOCRIT 28.3 % (37.0-47.0); HEMOGLOBIN 8.6 g/dl (12.0-16.0); LYMPHOCYTES # 2.9 10^3/ul (0.8-2.9); LYMPHOCYTES % 23.3 % (15.0-51.0); MEAN CORPUSCULAR HEMOGLOBIN 30.8 pg (29.0-33.0); MEAN CORPUSCULAR HGB CONC 30.4 g/dl (32.0-37.0); MEAN CORPUSCULAR VOLUME 101.4 fl (82.0-101.0); MEAN PLATELET VOLUME 11.1 fl (7.4-10.4); MONOCYTE # 1.1 10^3/ul (0.3-0.9); MONOCYTES % 8.6 % (0.0-11.0); NEUTROPHIL # 6.7 10^3/ul (1.6-7.5); NEUTROPHILS % 54.2 % (39.0-77.0); NUCLEATED RED BLOOD CELLS # 0.1 10^3/ul (0.0-0.0); NUCLEATED RED BLOOD CELLS% 0.8 /100WBC (0.0-0.0); PLATELET COUNT 235 10^3/UL (140-415); RED BLOOD COUNT 2.79 10^6/ul (4.20-5.40); RED CELL DISTRIBUTION WIDTH 19.5 % (11.5-14.5)
[2017-11-12] MEDS: METOCLOPRAMIDE 10 MG INJ IV ×3 (05:25→22:45)
[2017-11-12] MEDS: PANTOPRAZOLE 40 MG INJ IV ×2 (05:25→18:47)
[2017-11-12 05:45] LABS: POSITIVE DIFF @See below
[2017-11-12 05:50] LABS: ANION GAP 15 (8-16); BLOOD UREA NITROGEN 44 mg/dl (7-20); CALCIUM 9.5 mg/dl (8.4-10.2); CARBON DIOXIDE 27 mmol/L (21-31); CHLORIDE 103 mmol/L (97-110); CREATININE 3.82 mg/dl (0.44-1.00); GLUCOSE 161 mg/dl (70-220); MAGNESIUM 2.2 mg/dl (1.7-2.5); POTASSIUM 4.1 mmol/L (3.5-5.1); SODIUM 141 mmol/L (135-144)
[2017-11-12] MEDS ORDERED: METOCLOPRAMIDE 10 MG INJ IV (08:00)
[2017-11-12] MEDS ORDERED: ONDANSETRON 4 MG INJ IV (08:00)
[2017-11-12] MEDS: DEXTROSE 5%-0.45% NACL 1,000 ML IV (08:30)
[2017-11-12] MEDS: BUDESONIDE (NEB) 0.5MG/2ML AMP HHN ×2 (08:58→21:28)
[2017-11-12] MEDS: MULTIVIT/CA CARB/B CMPLX/FA TAB GTB (09:00)
[2017-11-12] MEDS: COLLAGENASE 30 GM TUBE TOP (09:29)
[2017-11-12] MEDS: NYSTATIN 30 GM POWDER BTL TOP ×2 (09:29→21:00)
[2017-11-12] MEDS: MICONAZOLE 2% 30 GM CR TOP ×2 (09:29→21:00)
[2017-11-12] MEDS: AMPICILLIN/SULB 3 GM/NS (PMX) 100 ML IVPB ×2 (09:29→22:46)
[2017-11-12] MEDS: HEPARIN 5,000 UNIT/0.5 ML VIAL SC ×2 (09:42→22:55)
[2017-11-12] MEDS: CASPOFUNGIN 50 MG in SOD CHLORIDE 0.9% 250 ML IVPB (11:09)
[2017-11-12 12:48] LABS: PROCALCITONIN 3.53 ng/mL (<0.10)
[2017-11-12] MEDS: ERYTHROMYCIN BASE (EC) 250 MG TAB PO ×2 (16:35→22:00)
[2017-11-12] MEDS: SOD FERRIC GLUC COMPLX 125 MG in SOD CHLORIDE 0.9% 100 ML IVPB (16:36)
[2017-11-12] MEDS ORDERED: VANCOMYCIN 1 GM (PMX) 250 ML IVPB (17:00)
[2017-11-12] MEDS ORDERED: GENTAMICIN IV PER PHARMACY XX (17:30)
[2017-11-12] MEDS ORDERED: GLUCOSE GEL 15 GRAM TUBE PO ×2 (18:00)
[2017-11-12] MEDS ORDERED: GLUCOSE GEL 15 GRAM TUBE BUCCAL (18:00)
[2017-11-12] MEDS ORDERED: GLUCAGON 1 MG INJ IM (18:00)
[2017-11-12] MEDS ORDERED: DEXTROSE 50% 50 ML SYRINGE IV ×2 (18:00)
[2017-11-12] MEDS: GENTAMICIN 160 MG in DEXTROSE 5% 100 ML IVPB (18:47)
[2017-11-12] MEDS: INSULIN GLARGINE [LANtus] 3 ML PEN SC (22:55)
[2017-11-13] MEDS: INSULIN ASPART [NOVOLOG] 3 ML PEN SC ×6 (01:00→21:00)
[2017-11-13] MEDS: ALBUTEROL HFA 8 GM INHALER INH ×4 (01:22→19:38)
[2017-11-13] MEDS: IPRATROPIUM (HFA) 12.9 GM INHALER INH ×4 (01:22→19:38)
[2017-11-13] MEDS: ACCU-CHEK XX (02:00)
[2017-11-13] MEDS: PANTOPRAZOLE 40 MG INJ IV ×2 (05:57→18:00)
[2017-11-13] MEDS: METOCLOPRAMIDE 10 MG INJ IV ×3 (05:57→23:03)
[2017-11-13] MEDS: NYSTATIN SUSP 5 ML CUP GTB ×5 (05:57→23:03)
[2017-11-13] MEDS: ERYTHROMYCIN BASE (EC) 250 MG TAB PO ×3 (05:57→22:00)
[2017-11-13 08:22] LABS: ADD MAN DIFF? NO
[2017-11-13] MEDS: DEXTROSE 5%-0.45% NACL 1,000 ML IV (08:30)
[2017-11-13 08:34] LABS: WHITE BLOOD COUNT 14.3 10^3/ul (4.8-10.8)
[2017-11-13 08:34] LABS: ABNORMAL IP MESSAGE 1; BASOPHIL # 0.1 10^3/ul (0.0-0.1); BASOPHILS % 0.5 % (0.0-2.0); EOSINOPHILS # 0.6 10^3/ul (0.0-0.5); EOSINOPHILS % 4.1 % (0.0-7.0); HEMATOCRIT 25.2 % (37.0-47.0); HEMOGLOBIN 7.5 g/dl (12.0-16.0); LYMPHOCYTES # 4.2 10^3/ul (0.8-2.9); LYMPHOCYTES % 29.1 % (15.0-51.0); MEAN CORPUSCULAR HEMOGLOBIN 30.2 pg (29.0-33.0); MEAN CORPUSCULAR HGB CONC 29.8 g/dl (32.0-37.0); MEAN CORPUSCULAR VOLUME 101.6 fl (82.0-101.0); MEAN PLATELET VOLUME 10.8 fl (7.4-10.4); MONOCYTE # 0.9 10^3/ul (0.3-0.9); MONOCYTES % 6.5 % (0.0-11.0); NEUTROPHIL # 6.6 10^3/ul (1.6-7.5); NEUTROPHILS % 46.4 % (39.0-77.0); NUCLEATED RED BLOOD CELLS% 0.3 /100WBC (0.0-0.0); PLATELET COUNT 235 10^3/UL (140-415); RED BLOOD COUNT 2.48 10^6/ul (4.20-5.40); RED CELL DISTRIBUTION WIDTH 19.1 % (11.5-14.5)
[2017-11-13 08:41] LABS: POSITIVE DIFF @See below
[2017-11-13 08:57] LABS: ANION GAP 13 (8-16); BLOOD UREA NITROGEN 50 mg/dl (7-20); CALCIUM 9.4 mg/dl (8.4-10.2); CARBON DIOXIDE 27 mmol/L (21-31); CHLORIDE 106 mmol/L (97-110); CREATININE 4.58 mg/dl (0.44-1.00); GLUCOSE 116 mg/dl (70-220); MAGNESIUM 2.2 mg/dl (1.7-2.5); PHOSPHORUS 4.1 mg/dl (2.5-4.9); POTASSIUM 4.3 mmol/L (3.5-5.1); SODIUM 142 mmol/L (135-144)
[2017-11-13] MEDS: BUDESONIDE (NEB) 0.5MG/2ML AMP HHN ×2 (09:00→19:38)
[2017-11-13] MEDS: MULTIVIT/CA CARB/B CMPLX/FA TAB GTB (09:00)
[2017-11-13] MEDS: AMPICILLIN/SULB 3 GM/NS (PMX) 100 ML IVPB ×2 (09:21→23:03)
[2017-11-13] MEDS: NYSTATIN 30 GM POWDER BTL TOP ×2 (09:21→21:00)
[2017-11-13] MEDS: COLLAGENASE 30 GM TUBE TOP (09:23)
[2017-11-13] MEDS: MICONAZOLE 2% 30 GM CR TOP ×2 (09:23→21:00)
[2017-11-13] MEDS: HEPARIN 5,000 UNIT/0.5 ML VIAL SC ×2 (09:51→23:51)
[2017-11-13] MEDS ORDERED: GENTAMICIN 80 MG/NS (PMX) 50 ML IVPB (10:30)
[2017-11-13] MEDS: CASPOFUNGIN 50 MG in SOD CHLORIDE 0.9% 250 ML IVPB (10:37)
[2017-11-13] MEDS: SOD FERRIC GLUC COMPLX 125 MG in SOD CHLORIDE 0.9% 100 ML IVPB (17:00)
[2017-11-13] MEDS: HEPARIN 1000 UNITS/ML 10 ML INJ CATHETER (17:13)
[2017-11-13] MEDS: INSULIN GLARGINE [LANtus] 3 ML PEN SC (20:00)
[2017-11-13] MEDS: GENTAMICIN 80 MG/NS (PMX) 50 ML IVPB (23:02)
[2017-11-14] MEDS: INSULIN ASPART [NOVOLOG] 3 ML PEN SC ×6 (00:43→21:00)
[2017-11-14] MEDS: ACCU-CHEK XX (01:06)
[2017-11-14] MEDS: IPRATROPIUM (HFA) 12.9 GM INHALER INH ×4 (01:31→19:50)
[2017-11-14] MEDS: ALBUTEROL HFA 8 GM INHALER INH ×4 (01:31→19:50)
[2017-11-14] MEDS: PANTOPRAZOLE 40 MG INJ IV ×2 (05:44→17:37)
[2017-11-14] MEDS: NYSTATIN SUSP 5 ML CUP GTB ×3 (05:44→17:37)
[2017-11-14] MEDS: METOCLOPRAMIDE 10 MG INJ IV ×3 (05:44→21:57)
[2017-11-14] MEDS: ERYTHROMYCIN BASE (EC) 250 MG TAB PO ×3 (05:45→22:00)
[2017-11-14] MEDS: DEXTROSE 5%-0.45% NACL 1,000 ML IV (08:30)
[2017-11-14 08:32] LABS: ABNORMAL IP MESSAGE 1; HEMATOCRIT 26.3 % (37.0-47.0); HEMOGLOBIN 7.8 g/dl (12.0-16.0); MEAN CORPUSCULAR HEMOGLOBIN 30.4 pg (29.0-33.0); MEAN CORPUSCULAR HGB CONC 29.7 g/dl (32.0-37.0); MEAN CORPUSCULAR VOLUME 102.3 fl (82.0-101.0); MEAN PLATELET VOLUME 10.7 fl (7.4-10.4); NUCLEATED RED BLOOD CELLS% 0.3 /100WBC (0.0-0.0); PLATELET COUNT 253 10^3/UL (140-415); RED BLOOD COUNT 2.57 10^6/ul (4.20-5.40); RED CELL DISTRIBUTION WIDTH 19.1 % (11.5-14.5)
[2017-11-14 08:32] LABS: WHITE BLOOD COUNT 14.6 10^3/ul (4.8-10.8)
[2017-11-14 08:35] LABS: ADD MAN DIFF? YES; POSITIVE DIFF @See below
[2017-11-14 08:52] LABS: ANION GAP 16 (8-16); BLOOD UREA NITROGEN 24 mg/dl (7-20); CALCIUM 8.9 mg/dl (8.4-10.2); CARBON DIOXIDE 27 mmol/L (21-31); CHLORIDE 101 mmol/L (97-110); GLUCOSE 117 mg/dl (70-220); MAGNESIUM 1.9 mg/dl (1.7-2.5); PHOSPHORUS 3.3 mg/dl (2.5-4.9); POTASSIUM 3.7 mmol/L (3.5-5.1); SODIUM 140 mmol/L (135-144)
[2017-11-14] MEDS: BUDESONIDE (NEB) 0.5MG/2ML AMP HHN ×2 (09:00→20:07)
[2017-11-14] MEDS: MULTIVIT/CA CARB/B CMPLX/FA TAB GTB (09:00)
[2017-11-14 09:46] LABS: ANISOCYTOSIS 1+ (0-0); BAND NEUTROPHILS #M 1.1 10^3/ul (0.0-0.6); BAND NEUTROPHILS % (M) 8 % (0-4); EOSINOPHILS % (M) 4 % (0-7); GIANT THROMBO% (M) 1 % (0-0); LYMPHOCYTES #M 3.6 10^3/ul (0.8-2.9); LYMPHOCYTES % (M) 25 % (15-51); METAMYELOCYTES #M 0.4 10^3/ul (0.0-0.0); METAMYELOCYTES %M 3 % (0-0); MONOCYTE #M 0.7 10^3/ul (0.3-0.9); MONOCYTES % (M) 5 % (0-11); MYELOCYTES #M 1.4 10^3/ul (0.0-0.0); MYELOCYTES % (M) 10 % (0-0); PLATELET ESTIMATE NORMAL; POIKILOCYTOSIS 1+ (0-0); POLYCHROMASIA 1+ (0-0); PROMYELOCYTES #M 0.4 10^3/ul (0-0); PROMYELOCYTES % (M) 3 % (0-0); ROULEAU 1+ (0-0); SEG NEUT #M 6.3 10^3/ul (1.6-7.5); SEGMENTED NEUTROPHILS (M) % 42 % (39-77)
[2017-11-14] MEDS: AMPICILLIN/SULB 3 GM/NS (PMX) 100 ML IVPB ×2 (11:23→21:57)
[2017-11-14] MEDS: HEPARIN 5,000 UNIT/0.5 ML VIAL SC ×2 (11:44→21:59)
[2017-11-14] MEDS: CASPOFUNGIN 50 MG in SOD CHLORIDE 0.9% 250 ML IVPB (12:01)
[2017-11-14] MEDS: MICONAZOLE 2% 30 GM CR TOP ×2 (12:12→21:57)
[2017-11-14] MEDS: COLLAGENASE 30 GM TUBE TOP (12:12)
[2017-11-14] MEDS: NYSTATIN 30 GM POWDER BTL TOP ×2 (12:13→21:57)
[2017-11-14] MEDS: INSULIN GLARGINE [LANtus] 3 ML PEN SC (20:00)
[2017-11-15] MEDS: NYSTATIN SUSP 5 ML CUP GTB ×4 (00:02→17:34)
[2017-11-15] MEDS: INSULIN ASPART [NOVOLOG] 3 ML PEN SC ×6 (01:00→21:00)
[2017-11-15] MEDS: ALBUTEROL HFA 8 GM INHALER INH ×4 (01:11→20:35)
[2017-11-15] MEDS: IPRATROPIUM (HFA) 12.9 GM INHALER INH ×4 (01:12→20:35)
[2017-11-15] MEDS: ACCU-CHEK XX (02:00)
[2017-11-15] MEDS: METOCLOPRAMIDE 10 MG INJ IV ×3 (05:41→22:09)
[2017-11-15] MEDS: ERYTHROMYCIN BASE (EC) 250 MG TAB PO ×3 (05:41→22:00)
[2017-11-15] MEDS: PANTOPRAZOLE 40 MG INJ IV ×2 (05:41→17:35)
[2017-11-15] MEDS: DEXTROSE 5%-0.45% NACL 1,000 ML IV (08:30)
[2017-11-15] MEDS: MULTIVIT/CA CARB/B CMPLX/FA TAB GTB (08:56)
[2017-11-15] MEDS: MICONAZOLE 2% 30 GM CR TOP ×2 (09:00→22:10)
[2017-11-15] MEDS: COLLAGENASE 30 GM TUBE TOP (09:00)
[2017-11-15] MEDS: NYSTATIN 30 GM POWDER BTL TOP ×2 (09:00→22:10)
[2017-11-15] MEDS: HEPARIN 5,000 UNIT/0.5 ML VIAL SC ×2 (09:28→22:13)
[2017-11-15] MEDS: BUDESONIDE (NEB) 0.5MG/2ML AMP HHN ×2 (12:08→20:35)
[2017-11-15] MEDS: CASPOFUNGIN 50 MG in SOD CHLORIDE 0.9% 250 ML IVPB (12:11)
[2017-11-15] MEDS: DIATR MEGLU/DIATRIZOATE SODIUM 120 ML BTL (12:39)
[2017-11-15] MEDS: HEPARIN 1000 UNITS/ML 10 ML INJ CATHETER (21:58)
[2017-11-15] MEDS: GENTAMICIN 80 MG/NS (PMX) 50 ML IVPB (22:09)
[2017-11-15] MEDS: INSULIN GLARGINE [LANtus] 3 ML PEN SC (22:12)
[2017-11-16] MEDS: AMPICILLIN/SULB 3 GM/NS (PMX) 100 ML IVPB ×4 (00:27→21:03)
[2017-11-16] MEDS: INSULIN ASPART [NOVOLOG] 3 ML PEN SC ×6 (01:00→21:19)
[2017-11-16] MEDS: IPRATROPIUM (HFA) 12.9 GM INHALER INH ×4 (01:33→20:54)
[2017-11-16] MEDS: ALBUTEROL HFA 8 GM INHALER INH ×4 (01:33→20:54)
[2017-11-16] MEDS: ACCU-CHEK XX (02:00)
[2017-11-16] MEDS: DEXTROSE 5%-0.45% NACL 1,000 ML IV (05:27)
[2017-11-16] MEDS: NYSTATIN SUSP 5 ML CUP GTB ×4 (05:34→17:25)
[2017-11-16] MEDS: PANTOPRAZOLE 40 MG INJ IV ×2 (05:41→17:25)
[2017-11-16] MEDS: METOCLOPRAMIDE 10 MG INJ IV ×3 (05:41→21:04)
[2017-11-16] MEDS: ERYTHROMYCIN BASE (EC) 250 MG TAB PO ×3 (05:41→21:13)
[2017-11-16] MEDS: MULTIVIT/CA CARB/B CMPLX/FA TAB GTB (09:00)
[2017-11-16] MEDS: COLLAGENASE 30 GM TUBE TOP (09:37)
[2017-11-16] MEDS: MICONAZOLE 2% 30 GM CR TOP ×2 (09:38→21:09)
[2017-11-16] MEDS: NYSTATIN 30 GM POWDER BTL TOP ×2 (09:39→21:09)
[2017-11-16] MEDS: HEPARIN 5,000 UNIT/0.5 ML VIAL SC ×2 (09:50→21:20)
[2017-11-16] MEDS: BUDESONIDE (NEB) 0.5MG/2ML AMP HHN ×2 (09:52→20:54)
[2017-11-16] MEDS: CASPOFUNGIN 50 MG in SOD CHLORIDE 0.9% 250 ML IVPB (13:19)
[2017-11-16] MEDS: INSULIN GLARGINE [LANtus] 3 ML PEN SC (21:17)
[2017-11-17] MEDS: NYSTATIN SUSP 5 ML CUP GTB ×3 (00:44→12:00)
[2017-11-17] MEDS: INSULIN ASPART [NOVOLOG] 3 ML PEN SC ×5 (00:57→18:09)
[2017-11-17] MEDS: IPRATROPIUM (HFA) 12.9 GM INHALER INH ×3 (01:41→13:21)
[2017-11-17] MEDS: ALBUTEROL HFA 8 GM INHALER INH ×3 (01:41→14:32)
[2017-11-17] MEDS: ACCU-CHEK XX (02:00)
[2017-11-17] MEDS: METOCLOPRAMIDE 10 MG INJ IV ×2 (06:25→16:04)
[2017-11-17] MEDS: PANTOPRAZOLE 40 MG INJ IV (06:25)
[2017-11-17] MEDS: ERYTHROMYCIN BASE (EC) 250 MG TAB PO ×2 (06:25→16:04)
[2017-11-17] MEDS: AMPICILLIN/SULB 3 GM/NS (PMX) 100 ML IVPB (09:00)
[2017-11-17] MEDS: BUDESONIDE (NEB) 0.5MG/2ML AMP HHN (09:00)
[2017-11-17] MEDS: MULTIVIT/CA CARB/B CMPLX/FA TAB GTB (09:00)
[2017-11-17] MEDS: COLLAGENASE 30 GM TUBE TOP (09:53)
[2017-11-17] MEDS: NYSTATIN 30 GM POWDER BTL TOP (09:53)
[2017-11-17] MEDS: MICONAZOLE 2% 30 GM CR TOP (09:53)
[2017-11-17] MEDS: HEPARIN 5,000 UNIT/0.5 ML VIAL SC (10:04)
[2017-11-17] MEDS: HEPARIN 1000 UNITS/ML 10 ML INJ CATHETER (12:28)
[2017-11-17] MEDS: CASPOFUNGIN 50 MG in SOD CHLORIDE 0.9% 250 ML IVPB (16:05)
== END 2017-11-17 18:09 | DRG 870 ==
LOC: ICU 05:20 → TEL 11-12 05:20
PROC: 5A1955Z Respiratory Ventilation, Greater than 96 Consecutive Hours (ICD-10-PCS; principal; 2017-11-08)
DX: A41.9 Sepsis, unspecified organism (principal); R65.21 Severe sepsis with septic shock; N18.6 End stage renal disease; G92 Toxic encephalopathy; J69.0 Pneumonitis due to inhalation of food and vomit; J96.10 Chronic respiratory failure, unspecified whether with hypoxia or hypercapnia; I13.2 Hypertensive heart and chronic kidney disease with heart failure and with stage 5 chronic kidney disease, or end stage renal disease; K56.7 Ileus, unspecified; J96.11 Chronic respiratory failure with hypoxia; N39.0 Urinary tract infection, site not specified; L03.314 Cellulitis of groin; B37.49 Other urogenital candidiasis; Z99.11 Dependence on respirator [ventilator] status; I50.9 Heart failure, unspecified; E87.5 Hyperkalemia; E83.9 Disorder of mineral metabolism, unspecified; E11.22 Type 2 diabetes mellitus with diabetic chronic kidney disease; D63.1 Anemia in chronic kidney disease; I48.0 Paroxysmal atrial fibrillation; L89.92 Pressure ulcer of unspecified site, stage 2; Z93.0 Tracheostomy status; Z93.1 Gastrostomy status; Z79.4 Long term (current) use of insulin
CPT/HCPCS: 36600; 71045; 74018; 74176; 74250; 80048; 80053; 82803; 82962; 83540; 83605; 83735; 84100; 84145; 85014; 85018; 85025; 85610; 87070; 87081; 87340; 90935; 93005; 94002; 94003; 94640

== ENCOUNTER → 2017-12-22 | Day surgery (SDC) | payer OTHER, BC, MEDICARE ==
[~2017-12-22] MED LIST changes: -CEFAZOLIN 1 GM/50 ML (PMX) 50 ML IVPB; +DIPHENHYDRAMINE 50 MG INJ IV; -EPHEDrine SULFATE 50 MG/5 ML SYG; +EPHEDrine SULFATE 50 MG/5 ML SYG IV; +FENTAnyl 50 MCG/ML VIAL; +FENTAnyl 50 MCG/ML VIAL IV; +HYDROmorphONE (0.2 MG/ML) 10ML SYG IV; +LABETALOL HCL 20MG INJ IV; -LIDOCAINE 1% (MDV) 20 ML INJ; +LIDOCAINE 1% (MPF) 30 ML INJ; +MEPERIDINE 25 MG INJ IV; +METOCLOPRAMIDE 10 MG INJ; +METOCLOPRAMIDE 10 MG INJ IV; +MIDAZOLAM 1 MG/ML 2 ML INJ; +ONDANSETRON 4 MG INJ; +ONDANSETRON 4 MG INJ IV; +PHENYLephrine (100 MCG/ML) 5ML SYG; +PROPOFOL 0 ML; -hydrALAzine 20 MG INJ
[2017-12-22] MEDS: HEPARIN 1000 UNITS/ML 10 ML INJ INJ ×2 (12:11→12:31)
[2017-12-22] MEDS: LIDOCAINE 1% (MPF) 30 ML INJ INJ (12:11)
== END | disposition home or self-care (01) ==
LOC: SDS 11:37
DX: I12.0 Hypertensive chronic kidney disease with stage 5 chronic kidney disease or end stage renal disease (principal); N18.6 End stage renal disease; I50.9 Heart failure, unspecified; E78.5 Hyperlipidemia, unspecified; E11.9 Type 2 diabetes mellitus without complications; E66.9 Obesity, unspecified; Z68.34 Body mass index [BMI] 34.0-34.9, adult; F03.90 Unspecified dementia, unspecified severity, without behavioral disturbance, psychotic disturbance, mood disturbance, and anxiety
CPT/HCPCS: 36558